=== PATIENT | male | born 1995 | race Caucasian/White ===

== ENCOUNTER 2022-01-15 21:18 | Inpatient (IN) | payer SELFPAY ==
[2022-01-15 21:19] VITALS: BP 126/79; PULSE 86; RESP 18; TEMP 37.1; O2SAT 99; BMI 25.8
--- NOTE | 2022-01-15 22:21 | CT_ITS ---
PROCEDURE INFORMATION: Exam: CT Abdomen And Pelvis With Contrast Exam date and time: 01/15/2022 10:21 PM Age: 26 years old Clinical indication: Abdominal pain; Localized; Right lower quadrant (rlq); Additional info: Rlq pain TECHNIQUE: Imaging protocol: Computed tomography of the abdomen and pelvis with contrast. Radiation optimization: All CT scans at this facility use at least one of these dose optimization techniques: automated exposure control; mA and/or kV adjustment per patient size (includes targeted exams where dose is matched to clinical indication); or iterative reconstruction. Contrast material: ISOVUE; Contrast volume: 75 ml; Contrast route: IV; COMPARISON: No relevant prior studies available. FINDINGS: Liver: Normal. No mass. Gallbladder and bile ducts: No calcified stones. No ductal dilation. Pancreas: Normal enhancement. No ductal dilation. Spleen: No splenomegaly. Adrenal glands: No mass. Kidneys and ureters: No hydronephrosis. Stomach and bowel: No obstruction. No mucosal thickening. Appendix: Dilated hyperemic appendix measuring 12 mm distally with 7 mm density near the base and adjacent stranding and fluid in several locules of gas. Intraperitoneal space: See above. Small free fluid within the pelvis which is mildly complex Vasculature: No abdominal aortic aneurysm. Lymph nodes: No enlarged lymph nodes. Urinary bladder: No acute abnormality. Reproductive: No acute abnormality. Bones/joints: No acute fracture. Soft tissues: No soft tissue swelling. IMPRESSION: Findings compatible with perforated appendicitis.
[2022-01-15 22:29] LABS: Basophils # 0.1 K/mm3 (0-0.2); Basophils % 0.5 % (0.1-2.0); Eosinophils # 0.2 K/mm3 (0.0-0.4); Eosinophils % 1.2 % (0.1-12.0); Hematocrit 44.3 % (42.0-52.0); Hemoglobin 14.5 g/dL (14.1-18.0); Lymphocytes # 0.7 K/mm3 (0.7-4.5); Lymphocytes % 5.6 % (10-50); Mean Corpuscular HGB Conc 32.8 g/dL (31.8-35.4); Mean Corpuscular Hemoglobin 31.3 pg (27.0-31.2); Mean Corpuscular Volume 95.7 fl (80-94); Mean Platelet Volume 8.8 fl (7.4-10.4); Monocytes # 0.6 K/mm3 (0.1-1.0); Monocytes % 4.3 % (1.7-9.3); Neutrophils # 11.4 K/mm3 (1.8-7.8); Neutrophils % 88.9 % (37.0-80.0); Platelet Count 254 K/mm3 (142-424); Red Blood Count 4.63 M/mm3 (4.60-6.20); Red Cell Distribution Width 13.3 % (11.5-17.5); White Blood Count 12.8 K/mm3 (4.8-10.8)
[2022-01-15 22:34] LABS: Microscopic, Urine URINE MICROSCOPIC (MICROSCOPIC)
[2022-01-15 22:36] LABS: Alanine Aminotransferase 80 U/L (12-78); Albumin Level 4.7 g/dl (3.5-5.0); Albumin/Globulin Ratio 1.3 (1.1-1.8); Alkaline Phosphatase 160 U/L (38-126); Amylase 50 U/L (30-110); Anion Gap 15.5 mEq/L (5-15); Aspartate Amino Transferase 73 U/L (17-59); Bilirubin,Total 1.4 mg/dl (0.2-1.3); Blood Urea Nitrogen 8 mg/dl (9-20); Calcium 8.9 mg/dl (8.4-10.2); Carbon Dioxide 26 mmol/L (22.0-30.0); Chloride 97 mmol/L (98-107); Creatinine Clearance Estimated 188 mL/min (50-200); Estimated Glomerular Filt Rate 160 ml/min (>60); GFR (African American) 194 ML/MIN (>60); Globulin 3.5 g/dL (1.3-3.2); Glucose 117 mg/dl (74-100); Lipase 22 U/L (23-300); Potassium 3.5 mmoL/L (3.5-5.1); Sodium 135 mmol/L (136-145); Total Protein,Serum 8.2 g/dl (6.3-8.2)
[2022-01-15 22:40] LABS: MANUAL DIFFERENTIAL MANUAL DIFFERENTIAL (MANUAL DIFF)
[2022-01-15 22:41] LABS: C-Reactive Protein 174.3 mg/L (0-4)
[2022-01-15 22:43] LABS: Appearance,Urine CLEAR (Clear); Blood, Urine Negative (Negative); Color,Urine ORANGE (Yellow); Glucose,Urine (UA) Negative (Negative); Ketones,Urine 3+ (Negative); Leukocyte Esterase,Urine Negative (Negative); Nitrate,Urine Negative (Negative); PH,Urine 5.5 (5.0-8.5); Protein,Urine 1+ (Negative); Specific Gravity, Urine >= 1.030 (1.005-1.030)
[2022-01-15 22:45] LABS: Bilirubin,Urine 2+ (Negative)
[2022-01-15 22:46] LABS: Bacteria,Urine Trace /lpf; RBC,Urine Occasional #/hpf (0-3); Squamous Epithelial Cell,Urine Occasional #/hpf (0-5)
[2022-01-15 23:02] LABS: Erythrocyte Sedimentation Rate 27 mm/hr (0-15)
[2022-01-15 23:04] LABS: Lymphocytes % 8 % (10-50); Monocytes % 4 % (2-9); Neutrophils % 81 % (42-76); Platelet Estimate Normal; RBC Morphology Normal; Total Cells Counted 100
--- NOTE | 2022-01-15 23:35 | HMH.EDNVD ---
ED Disposition Clinical Impression: Acute appendicitis Qualifiers: Acute appendicitis type: with localized peritonitis Appendicitis gangrene presence: without gangrene Appendicitis perforation presence: with perforation Appendicitis abscess presence: without abscess Qualified Code(s): K35.32 - Acute appendicitis with perforation and localized peritonitis, without abscess Disposition: Admitted As Inpatient Condition on Discharge: Good Instructions: DI for Acute Abdominal Pain Referrals: Provider,Referral, MD [Primary Care Provider] - - Critical Care Critical Care Time: No Attestation: On 01/15/22, the high probability of a clinically significant, sudden or life threatening deterioration of the following system(s) required my full and direct attention, intervention and personal management. The time I documented below is in addition to time spent performing reported procedures but includes the following listed in this critical care notation. Medical Decision Making - Medical Records Medical records reviewed: Yes: I reviewed the patient's medical records. - [place] Inquiry Pt receiving controlled substance: No Vital Signs: 01/15/22 21:19 Temperature 98.8 F Temperature Source Oral Pulse Rate [Right] 86 Respiratory Rate 18 Blood Pressure [Right Arm] 126/79 Blood Pressure Mean [Right Arm] 94 02 Sat by Pulse Oximetry 99 - Lab Data Lab results reviewed: Yes: I reviewed the patient's lab results. Lab Results 01/15/22 22:17: WBC 12.8 H, RBC 4.63, Hgb 14.5, Hct 44.3, MCV 95.7 H, MCH 31.3 H, MCHC 32.8, RDW 13.3, Plt Count 254, MPV 8.8, Neut % (Auto) 88.9 H, Lymph % (Auto) 5.6 L, [place] % (Auto) 4.3, Eos % (Auto) 1.2, Baso % (Auto) 0.5, Neut # (Auto) 11.4 H, Lymph # (Auto) 0.7, [place] # (Auto) 0.6, Eos # (Auto) 0.2, Baso # (Auto) 0.1, Total Counted 100, Neutrophils % (Manual) 81 H, Band Neutrophils % 7.0, Lymphocytes % (Manual) 8 L, Monocytes % (Manual) 4, Platelet Estimate Normal, RBC Morphology Normal, ESR 27 H 01/15/22 22:17: Sodium 135 L, Potassium 3.5, Chloride 97 L, Carbon Dioxide 26, Anion Gap 15.5 H, BUN 8 L, Creatinine 0.60 L, Estimated Creat Clear 188, Estimated GFR 160, Est GFR ( Amer) 194, Glucose 117 H, Calcium 8.9, Total Bilirubin 1.4 H, AST 73 H, ALT 80 H, Alkaline Phosphatase 160 H, C-Reactive Protein 174.3 H, Total Protein 8.2, Albumin 4.7, Globulin 3.5 H, Albumin/Globulin Ratio 1.3, Amylase 50, Lipase 22 L, Procalcitonin 0.340 01/15/22 22:30: Urine Color [place], Urine Appearance Clear, Urine pH 5.5, Ur Specific [place] >= 1.030, Urine Protein 1+, Urine Glucose (UA) Negative, Urine Ketones 3+, Urine Blood Negative, Urine Nitrate Negative, Urine Bilirubin 2+ A, Urine Urobilinogen 4.0, Ur Leukocyte Esterase Negative, Urine RBC Occasional, Urine WBC 10-20, Ur Squamous Epith Cells Occasional, Urine Bacteria Trace Result diagrams: 01/15/22 22:17 01/15/22 22:17 Orders (Tests/Meds): ED MEDICATIONS Generic Name Dose Route Start Last Admin Trade Name Freq PRN Reason Stop Dose Admin Sodium Chloride 1,000 mls @ 999 mls/hr 01/15/22 22:30 01/15/22 22:28 Sod Chlor 0.9% 1000ml Bag IV 01/15/22 23:30 999 mls/hr .Q1H1M BILL Administration Sodium Chloride 8 ml 01/15/22 22:26 Sodium Chloride 0.9% 10ml Vial IV 02/14/22 22:25 NEEDED PRN dilute pepcid Discontinued Medications Generic Name Dose Route Start Last Admin Trade Name Freq PRN Reason Stop Dose Admin Famotidine 20 mg 01/15/22 22:26 01/15/22 22:27 Famotidine 20mg/2ml Vial IV 01/15/22 22:27 20 mg ONCE ONE Administration Iopamidol 75 ml 01/15/22 22:48 01/15/22 22:49 Iopamidol-370 (76%);100ml Bottle IV 01/15/22 22:49 75 ml ONCE ONE Administration Ketorolac Tromethamine 30 mg 01/15/22 22:26 01/15/22 22:28 Ketorolac 30mg/Ml Vial IV 03/06/22 22:27 30 mg ONCE ONE Administration Metoclopramide HCl 10 mg 01/15/22 22:26 01/15/22 22:27 Metoclopramide Hcl 10mg/2ml Vial IVP 01/15/22 22:27
--- NOTE | 2022-01-15 23:37 | PC.NURSE ---
Mnoie called to verify that Dr. Gant saw report
--- NOTE | 2022-01-15 23:38 | PC.NURSE ---
Dr. Gant on phone with Dr. Mosquera
--- NOTE | 2022-01-15 23:39 | PC.NURSE ---
Surgery team notified.
[2022-01-15 23:42] LABS: Coronavirus 19, PCR Not Detected (NotDetected); Influenza A, PCR Not Detected (NotDetected); Influenza B, PCR Not Detected (NotDetected)
[2022-01-16] VITALS (24 sets, daily range): BP systolic 101–121; BP diastolic 61–78; PULSE 66–110; RESP 14–96; TEMP 36.7–43; O2SAT 92–99
[2022-01-16 00:10] LABS: Lactic Acid 0.8 mmol/L (0.7-2.1)
--- NOTE | 2022-01-16 00:11 | HMH.GSHP ---
HPI HPI: Patient is a 26-year-old male who speaks very little Albanian. He has had progressive right lower quadrant abdominal pain since 01/13/2022. Due to the persistence and severity of the pain he presented to the emergency department. He underwent evaluation. He was found to have a mild leukocytosis. He did have some mild elevation of transaminases and bilirubin. CT scan revealed findings consistent with acute perforated appendicitis. Surgical consultation was obtained. [facility] History I have reviewed the patient's past medical history: Yes *Have you ever received a pneumonia vaccine?: No *Have you received a flu vaccine this season?: No - *Social History Smoking Status: Unknown if ever smoked Alcohol Intake: current *Occupational Status:: other *Travel in the last 8 weeks: None Family Hx:: Unable to obtain Review of Systems - Review of Systems Review of systems:: unable to obtain - *Neurologic Denies localized weakness, Denies headache(s), Denies seizure-like activity Meds Home Medications Medication Instructions Recorded Confirmed Type No Known Home Medications 01/15/22 01/15/22 History Allergies Allergy/AdvReac Type Severity Reaction Status Date / Time No Known Allergies Allergy Verified 01/15/22 22:21 Exam Vital signs and Labs for Last 24 Hours: Temp Pulse Resp BP Pulse Ox 98.8 F 86 18 126/79 99 01/15/22 21:19 01/15/22 21:19 01/15/22 21:19 01/15/22 21:19 01/15/22 21:19 Laboratory Results - last 24 hr 01/15/22 22:17: WBC 12.8 H, RBC 4.63, Hgb 14.5, Hct 44.3, MCV 95.7 H, MCH 31.3 H, MCHC 32.8, RDW 13.3, Plt Count 254, MPV 8.8, Neut % (Auto) 88.9 H, Lymph % (Auto) 5.6 L, [place] % (Auto) 4.3, Eos % (Auto) 1.2, Baso % (Auto) 0.5, Neut # (Auto) 11.4 H, Lymph # (Auto) 0.7, [place] # (Auto) 0.6, Eos # (Auto) 0.2, Baso # (Auto) 0.1, Total Counted 100, Neutrophils % (Manual) 81 H, Band Neutrophils % 7.0, Lymphocytes % (Manual) 8 L, Monocytes % (Manual) 4, Platelet Estimate Normal, RBC Morphology Normal, ESR 27 H 01/15/22 22:17: Sodium 135 L, Potassium 3.5, Chloride 97 L, Carbon Dioxide 26, Anion Gap 15.5 H, BUN 8 L, Creatinine 0.60 L, Estimated Creat Clear 188, Estimated GFR 160, Est GFR ( Amer) 194, Glucose 117 H, Calcium 8.9, Total Bilirubin 1.4 H, AST 73 H, ALT 80 H, Alkaline Phosphatase 160 H, C-Reactive Protein 174.3 H, Total Protein 8.2, Albumin 4.7, Globulin 3.5 H, Albumin/Globulin Ratio 1.3, Amylase 50, Lipase 22 L, Procalcitonin 0.340 01/15/22 22:30: Urine Color [place], Urine Appearance Clear, Urine pH 5.5, Ur Specific [place] >= 1.030, Urine Protein 1+, Urine Glucose (UA) Negative, Urine Ketones 3+, Urine Blood Negative, Urine Nitrate Negative, Urine Bilirubin 2+ A, Urine Urobilinogen 4.0, Ur Leukocyte Esterase Negative, Urine RBC Occasional, Urine WBC 10-20, Ur Squamous Epith Cells Occasional, Urine Bacteria Trace 01/15/22 23:30: SARS-CoV-2 (PCR) Not detected, Influenza A Untype (PCR) Not detected, Influenza Type B (PCR) Not detected I & O for Last 24 hours: Intake & Output 01/13/22 01/14/22 01/15/22 01/16/22 11:59 11:59 11:59 11:59 Weight 160 lb - Constitutional no acute distress - *Routine HEENT Exam Head: Present: normocephalic Eye: Present: EOMI, PERRL ENT: Present: mucous membranes moist - *Routine Neck Exam Present: supple. Absent: lymphadenopathy - *Routine Respiratory Exam Present: CTA bilaterally - *Routine Cardiovascular Exam Present: RRR - *Routine Abdominal Exam Present: soft, normoactive bowel sounds, tenderness Comments: He does have tenderness with voluntary guarding in the right lower quadrant and left lower quadrant. - *Routine Rectal Exam Rectal:: deferred - *Routine Genitalia Exam Genitalia:: deferred - *Routine Extremities Exam Absent: cyanosis, clubbing, edema - *Routine Skin Exam Present: warm. Absent: rash - *Routine Neurological Exam Present: alert, oriented X3 Results - Results Lab Resul
--- NOTE | 2022-01-16 00:57 | HMH.ANESCL ---
[facility] Anesthesia Checklist - Patient Identification Patient Identification: Arm Band, Family - Structural Data Admitted From: Emergency Dept Planned Operative Procedure/s: Laparoscopic Appendectomy Consent for Planned Operative Procedure(s) Verified: Yes Verified Documents: Surgical Consent, History and Physical - NPO Status Verified Time NPO: 15:00 (01/15/22) - Additional verifications Anesthesia Reactions: No - Airway Assessment C-Spine Mobility Assessed: Yes (mp2) TMJ Mobility Assessed: Yes Dentition: Good Dentition - Neurological Assessment Level of Consciousness: Awake, Alert - Anesthesia Plan Anesthesia Risk discussed: Yes Anesthesia Plan: Verified ASA Class: I (e) Anesthesia Type: General [facility] History I have reviewed the patient's past medical history: Yes *Have you ever received a pneumonia vaccine?: No *Have you received a flu vaccine this season?: No Anesthesia experience/problems:: nac Other Surgeries: Yes: No Previous Surgery - *Social History Smoking Status: Unknown if ever smoked Alcohol Intake: current Substance Use Type: denies use *Occupational Status:: other *Travel in the last 8 weeks: None Family Hx:: Unable to obtain
--- NOTE | 2022-01-16 01:29 | HMH.OPNOTE ---
Date of procedure: 01/16/22 Pre-op Diagnosis:: Acute appendicitis Post-op Diagnosis:: Acute necrotizing perforated appendicitis Procedure performed:: Laparoscopic appendectomy Surgeon:: Benjamin Mosquera MD MANHOLE STRIPPER:: Juliano Em Anesthesia: SCOTT Estimated blood loss (mL): 10 Operative findings:: Severe acute appendicitis with necrosis and perforation with established peritonitis and purulent fluid within the abdomen. Operative note:: Consent was obtained patient taken the operating room. He was given preoperative intravenous antibiotics. In the operating room he was placed in a supine position. General anesthesia was induced via endotracheal tube. Galloway catheter was placed. Abdomen was prepped and draped in the standard surgical fashion. Infraumbilical skin incision was made and while performing abdominal wall lift Veress needle was inserted. CO2 pneumoperitoneum was achieved to 15 mmHg. 12 mm optical trocar was inserted at the umbilicus. Intraperitoneal contents were visualized. There was noted to be fibrinopurulent exudate. There were acute inflammatory adhesions with omentum adhered to the terminal ileum. Some of the small bowel was markedly inflamed and somewhat indurated and erythematous as was some of the peritoneal lining. There was purulent fluid mostly in the pelvis and right lower quadrant which was suctioned free. Ultimately the appendix was able to be identified. It was severely inflamed and necrotic. It was able to be delivered anteriorly. The mesoappendix was carefully divided with KINGS ultrasonic harmonic donny with care taken to coagulate the appendiceal artery in the process. With some minor difficulty dissection was carried down to the appendiceal base. The appendix was divided at its base with endoscopic JIAN linear cutting stapling device. The appendix was placed within an Endo Catch retrieval device and removed from the peritoneal cavity via the umbilical trocar site. This did require some minor extension of the fascial incision for delivery. The appendiceal stump was then reinforced with closure using a PDS Endoloop. Irrigation was then performed within the pelvis and right lower quadrant until clear. Irrigation was performed over the liver. Trochars were then removed as CO2 pneumoperitoneum was evacuated. Fascia at the umbilicus was closed with a couple of interrupted 0 Vicryl sutures. Local anesthetic was infiltrated. Skin incisions were closed with 4-0 Monocryl in a subcuticular fashion. Steri-Strips and dressings were applied. Condition: stable Disposition: PACU Specimens:: Appendix Complications:: None immediately apparent
--- NOTE | 2022-01-16 01:41 | P.PN_ITS ---
[facility] [place] Anesthesia Record Part I Intake, IV Amount: 600 Estimated blood loss (mL): 10 Urine output (mL): 800 Blood Pressure: 101/61 SaO2: 97 Pulse Rate: 110 Respiratory Rate: 16 Temperature: 99.2 F Patient is:: Drowsy, Stable Stable to PACU at:: 01:35
--- NOTE | 2022-01-16 02:12 | SUR.PHASEI ---
0204- detailed report called to miguel ellis in ICU. 0206- pt left in stable condition with miguel ellis in ICU at this time.
--- NOTE | 2022-01-16 02:14 | PC.NURSE ---
[facility] called to clarify dosing of zosyn, stated that she would retime since it was given prior at 0045
--- NOTE | 2022-01-16 02:42 | PC.NURSE ---
0215 pt arrived to floor via stretcher from PACU
[2022-01-16 02:56] LABS: Microscopic,Cath URINE MICROSCOPIC (MICROSCOPIC)
[2022-01-16 03:04] LABS: Appearance,Urine/Cath CLEAR (Clear); Bilirubin,Cath Negative (Negative); Blood, Urine/Cath Negative (Negative); Color,Urine/Cath YELLOW (Yellow); Glucose,Urine/Cath (UA) Negative (Negative); Ketones,Urine/Cath 1+ (Negative); Leukocyte Esterase,Cath Negative (Negative); Nitrate,Cath Negative (Negative); PH,Urine/Cath 6.5 (5.0-8.5); Protein,Urine/Cath Negative (Negative); Specific Gravity, Urine/Cath <= 1.005 (1.005-1.030)
[2022-01-16 03:12] LABS: Renal Epithelial Cells,Ur/Cath Occasional #/lpf (0); WBC,Urine/Cath Occasional #/hpf (0-3)
--- NOTE | 2022-01-16 07:43 | HMH.PHAVTE ---
[facility] Pharmacy VTE Monitoring - Patient Demographics Admission date: 01/16/22 Report Date: 01/16/22 Time: 07:43 Allergies/Adverse Reactions: Patient Allergies No Known Allergies Allergy (Verified 01/15/22 22:21) Height: 1.68 m Weight: 72.575 kg Patient Problems: Current Active Problems Acute appendicitis (Acute) - VTE Risk Labs: VTE Related Lab Results Hgb 14.5 g/dL (14.1-18.0) 01/15/22 22:17 Hct 44.3 % (42.0-52.0) 01/15/22 22:17 Plt Count 254 K/mm3 (142-424) 01/15/22 22:17 BUN 8 mg/dl (9-20) L 01/15/22 22:17 Creatinine 0.60 mg/dl (0.66-1.25) L 01/15/22 22:17 Estimated Creat Clear 188 mL/min (50-200) 01/15/22 22:17 Was VTE Risk Assessment Performed: Yes VTE Score: 3 VTE Risk Level: Low Risk Clinical Trial Participant: No - Prophylaxis VTE Prophylaxis Ordered?: Yes Types of VTE Prophylaxis: IPCS Knee High
--- NOTE | 2022-01-16 07:57 | P.PN_ITS ---
[facility] Anesthesia Record Part II Discharge Time: 02:05 Destination: Medical Surgical Department PACU nurse assessment reviewed?: Yes Patient Condition:: Good Anesthesia Complications:: None Swallowing reflex intact?: Yes Cyanosis?: No Blood Pressure: 121/76 Pulse Rate: 94 Temperature: 99 F Mental Status: Alert & Oriented Pain level:: 0 Nausea and/or vomitting:: None Intake, IV Amount: 0
--- NOTE | 2022-01-16 08:10 | P.PN_ITS ---
Subjective Narrative: Patient doing well without any issues several hours postoperatively. Progress Note: A&P Assessment and Plan for All Diagnoses:: Continue to limit to clear liquids for now due to findings of peritonitis and probable ileus intraoperatively. Continue intravenous antibiotics for esta blished purulent peritonitis. Exam Vital signs and Labs for Last 24 Hours: Temp Pulse Resp BP Pulse Ox 99 F 94 H 16 121/76 97 01/16/22 07:58 01/16/22 07:58 01/16/22 07:00 01/16/22 07:58 01/16/22 07:00 Laboratory Results - last 24 hr 01/15/22 22:17: WBC 12.8 H, RBC 4.63, Hgb 14.5, Hct 44.3, MCV 95.7 H, MCH 31.3 H , MCHC 32.8, RDW 13.3, Plt Count 254, MPV 8.8, Neut % (Auto) 88.9 H, Lymph % (Auto) 5.6 L, [place] % (Auto) 4.3, Eos % (Auto) 1.2, Baso % (Auto) 0.5, Neut # (Auto) 11.4 H, Lymph # (Auto) 0.7, [place] # (Auto) 0.6, Eos # (Auto) 0.2, Baso # (Auto) 0.1, Total Counted 100, Neutrophils % (Manual) 81 H, Band Neutrophils % 7.0, Lymphocytes % (Manual) 8 L, Monocytes % (Manual) 4, Platelet Estimate Normal, RBC Morphology Normal, ESR 27 H 01/15/22 22:17: Sodium 135 L, Potassium 3.5, Chloride 97 L, Carbon Dioxide 26, Anion Gap 15.5 H, BUN 8 L, Creatinine 0.60 L, Estimated Creat Clear 188, Estimated GFR 160, Est GFR ( Amer) 194, Glucose 117 H, Calcium 8.9, Total Bilirubin 1.4 H, AST 73 H, ALT 80 H, Alkaline Phosphatase 160 H, C-Reactive Protein 174.3 H, Total Protein 8.2, Albumin 4.7, Globulin 3.5 H, Albumin/Globulin Ratio 1.3, Amylase 50, Lipase 22 L, Procalcitonin 0.340 01/15/22 22:30: Urine Color [place], Urine Appearance Clear, Urine pH 5.5, Ur Specific [place] >= 1.030, Urine Protein 1+, Urine Glucose (UA) Negative, Urine Ketones 3+, Urine Blood Negative, Urine Nitrate Negative, Urine Bilirubin 2+ A, Urine Urobilinogen 4.0, Ur Leukocyte Esterase Negative, Urine RBC Occasional, Urine WBC 10-20, Ur Squamous Epith Cells Occasional, Urine Bacteria Trace 01/15/22 23:30: SARS-CoV-2 (PCR) Not detected, Influenza A Untype (PCR) Not detected, Influenza Type B (PCR) Not detected 01/15/22 23:49: Lactate 0.8 01/16/22 00:30: Urine Color Yellow, Urine Appearance Clear, Urine pH 6.5, Ur Specific [place] <= 1.005, Urine Protein Negative, Urine Glucose (UA) Negative, Urine Ketones 1+, Urine Blood Negative, Urine Nitrate Negative, Urine Bilirubin Negative, Urine Urobilinogen 1.0, Ur Leukocyte Esterase Negative, Urine WBC Occasional, Ur Renal Epithelial Cell Occasional I & O for Last 24 hours: Intake & Output 01/13/22 01/14/22 01/15/22 01/16/22 11:59 11:59 11:59 11:59 Intake Total 1085 / 1085 Output Total 500 / 500 Balance 585 / 585 Weight 160 lb - *Routine Abdominal Exam Present: soft
[2022-01-17] VITALS: BP 119/91; PULSE 79; RESP 19; TEMP 36.9; O2SAT 96
[2022-01-17 04:00] VITALS: BP 105/68; PULSE 70; RESP 17; TEMP 37; O2SAT 96
--- NOTE | 2022-01-17 06:03 | PC.NURSE ---
Patient alert and oriented this shift. Patient rested well t/o shift. C/o pain treated with medication per MAR with favorable results. Dressings with scant bleeding noted to abdomen. Call alcantara in reach, will continue to monitor.
[2022-01-17 06:11] LABS: Basophils % 0.4 % (0.1-2.0); Eosinophils # 0.2 K/mm3 (0.0-0.4); Eosinophils % 2.2 % (0.1-12.0); Hematocrit 41.7 % (42.0-52.0); Hemoglobin 13.1 g/dL (14.1-18.0); Lymphocytes # 1.4 K/mm3 (0.7-4.5); Lymphocytes % 15.3 % (10-50); Mean Corpuscular HGB Conc 31.4 g/dL (31.8-35.4); Mean Corpuscular Hemoglobin 31.2 pg (27.0-31.2); Mean Corpuscular Volume 99.6 fl (80-94); Monocytes # 0.7 K/mm3 (0.1-1.0); Monocytes % 7.4 % (1.7-9.3); Neutrophils # 6.7 K/mm3 (1.8-7.8); Neutrophils % 74.6 % (37.0-80.0); Platelet Count 261 K/mm3 (142-424); Red Blood Count 4.19 M/mm3 (4.60-6.20); Red Cell Distribution Width 13.6 % (11.5-17.5)
[2022-01-17 06:21] LABS: Alanine Aminotransferase 37 U/L (12-78); Albumin Level 3.5 g/dl (3.5-5.0); Albumin/Globulin Ratio 1.1 (1.1-1.8); Alkaline Phosphatase 90 U/L (38-126); Anion Gap 9.6 mEq/L (5-15); Aspartate Amino Transferase 23 U/L (17-59); Bilirubin,Total 0.8 mg/dl (0.2-1.3); Blood Urea Nitrogen 6 mg/dl (9-20); Calcium 8.4 mg/dl (8.4-10.2); Carbon Dioxide 27 mmol/L (22.0-30.0); Chloride 105 mmol/L (98-107); Creatinine Clearance Estimated 161 mL/min (50-200); Estimated Glomerular Filt Rate 134 ml/min (>60); GFR (African American) 162 ML/MIN (>60); Globulin 3.1 g/dL (1.3-3.2); Glucose 114 mg/dl (74-100); Potassium 3.6 mmoL/L (3.5-5.1); Sodium 138 mmol/L (136-145); Total Protein,Serum 6.6 g/dl (6.3-8.2)
[2022-01-17 08:00] VITALS: BP 121/84; PULSE 73; RESP 17; TEMP 36.8; O2SAT 97
[2022-01-17 12:00] VITALS: BP 125/84; PULSE 72; RESP 16; TEMP 36.9; O2SAT 98
--- NOTE | 2022-01-17 14:37 | HMH.GSPN ---
Subjective Narrative: Patient did have some pain yesterday. Improved today. Denies passing gas. Been on clear liquids. Progress Note: A&P Assessment and Plan for All Diagnoses:: Continue IV antibiotics. Likely has slowly improving ileus. Advance to full liquids at this time. Exam Vital signs and Labs for Last 24 Hours: Temp Pulse Resp BP Pulse Ox 98.4 F 72 16 125/84 98 01/17/22 12:00 01/17/22 12:00 01/17/22 12:00 01/17/22 12:00 01/17/22 12:00 Laboratory Results - last 24 hr 01/17/22 05:15: WBC 9.0 D, RBC 4.19 L, Hgb 13.1 L, Hct 41.7 L, MCV 99.6 H, MCH 31.2, MCHC 31.4 L, RDW 13.6, Plt Count 261, MPV 9.0, Neut % (Auto) 74.6, Lymph % (Auto) 15.3, [place] % (Auto) 7.4, Eos % (Auto) 2.2, Baso % (Auto) 0.4, Neut # (Auto) 6.7, Lymph # (Auto) 1.4, [place] # (Auto) 0.7, Eos # (Auto) 0.2, Baso # (Auto) 0.0 01/17/22 05:15: Sodium 138, Potassium 3.6, Chloride 105, Carbon Dioxide 27, Anion Gap 9.6, BUN 6 L, Creatinine 0.70, Estimated Creat Clear 161, Estimated GFR 134, Est GFR ( Amer) 162, Glucose 114 H, Calcium 8.4, Total Bilirubin 0.8, AST 23 D, ALT 37 D, Alkaline Phosphatase 90, Total Protein 6.6, Albumin 3.5 D, Globulin 3.1, Albumin/Globulin Ratio 1.1 I & O for Last 24 hours: Intake & Output 01/15/22 01/16/22 01/17/22 01/18/22 11:59 11:59 11:59 11:59 Intake Total 1325 / 1325 4515 / 4515 Output Total 500 / 500 2800 / 2800 Balance 825 / 825 1715 / 1715 Weight 160 lb Microbiology Reports for the Last 24 Hours: Microbiology 01/15/22 22:30 Urine,Clean Catch Urine Culture - Preliminary NO GROWTH AFTER 24 HOURS - *Routine Abdominal Exam Present: soft Comments: Abdomen is slightly distended. Trocar sites clean.
--- NOTE | 2022-01-17 15:38 | PC.NURSE ---
Pt is alert and oriented x4. Lungs are clear, bowel sounds are hypoactive. Dressings to lap sites on abd are unchanged from morning assessment. Small amount of old dried blood noted. He has tolerated his diet. Family brought in yogurt, strawberries, apples and peaches. Pt has tolerated those as well. He has ambulated to the bathroom with standby assist. He has denied pain. He is currently resting in bed watching TV.
[2022-01-17 16:00] VITALS: BP 115/76; PULSE 73; RESP 16; TEMP 37.2; O2SAT 98
--- NOTE | 2022-01-17 16:49 | PC.NURSE ---
Pt arrived to the floor from ICU at this time
--- NOTE | 2022-01-17 16:50 | PC.NURSE ---
Pt transported to room 213 at this time by A Gakyle and TYLER Anderson'jim. Report given to LEXI Thornton earlier.
--- NOTE | 2022-01-17 16:57 | PC.NURSE ---
Pt is on the floor
[2022-01-17 19:27] VITALS: BP 117/77; PULSE 76; RESP 18; TEMP 36.7; O2SAT 99
[2022-01-18 03:39] VITALS: BP 107/70; PULSE 68; RESP 16; TEMP 36.6; O2SAT 97
[2022-01-18 05:00] VITALS: BMI 21.8
--- NOTE | 2022-01-18 06:08 | PC.NURSE ---
Pt able to make basic needs known to staff. Pt c/o pain in abdomen 1x t/o shift. [place] administered per JAN, pt admits relief. Pt able to get out of bed with 1x assist, ambulating independently to . Site DSGs CDI. Pts Brother has remained in room t/o night. Call light within reach.
[2022-01-18 07:42] VITALS: BP 116/73; PULSE 74; RESP 18; TEMP 36.5; O2SAT 98
--- NOTE | 2022-01-18 08:17 | HMH.GSPN ---
Subjective Patient reports: no new complaints, bowel movement Progress Note: A&P (1) Perforated appendicitis Status: Acute Assessment and plan: Overall, doing well status post laparoscopic appendectomy. Soft diet ordered Continue IV antibiotics Increase ambulation Exam Vital signs and Labs for Last 24 Hours: Temp Pulse Resp BP Pulse Ox 97.7 F 74 18 116/73 98 01/18/22 07:42 01/18/22 07:42 01/18/22 07:42 01/18/22 07:42 01/18/22 07:42 I & O for Last 24 hours: Intake & Output 01/15/22 01/16/22 01/17/22 01/18/22 11:59 11:59 11:59 11:59 Intake Total 1325 / 1325 4635 / 4635 1042 / 1042 Output Total 500 / 500 2800 / 2800 500 / 500 Balance 825 / 825 1835 / 1835 542 / 542 Weight 160 lb 136 lb Microbiology Reports for the Last 24 Hours: Microbiology 01/15/22 23:55 Blood Blood Culture - Preliminary NO GROWTH AFTER 48 HOURS 01/15/22 23:55 Blood Blood Culture - Preliminary NO GROWTH AFTER 48 HOURS 01/15/22 22:30 Urine,Clean Catch Urine Culture - Final NO GROWTH AFTER 48 HOURS - Constitutional no acute distress - *Routine Respiratory Exam Absent: respiratory distress - *Routine Cardiovascular Exam Absent: tachycardia - *Routine Abdominal Exam Present: soft Comments: Incisions clean and dry. No erythema.
[2022-01-18 11:03] VITALS: BP 104/70; PULSE 71; RESP 16; TEMP 36.8; O2SAT 98
--- NOTE | 2022-01-18 14:56 | PC.NURSE ---
rounded on patient who was sitting up at bedside. no concerns or needs at this time
[2022-01-18 15:17] VITALS: BP 113/73; PULSE 75; RESP 16; TEMP 36.8; O2SAT 97
--- NOTE | 2022-01-18 15:18 | PC.NURSE ---
Spoke with Kenya ELLIOTT about placing PICC and now has decided that he doesn't want it placed. He wants to get stuck everytime.
[2022-01-18 20:00] VITALS: BP 117/76; PULSE 68; RESP 18; TEMP 36.4; O2SAT 98
[2022-01-19] VITALS: BP 109/76; PULSE 64; RESP 18; TEMP 36.6; O2SAT 98
[2022-01-19 04:00] VITALS: BP 112/70; PULSE 54; RESP 17; TEMP 36.4; O2SAT 99
[2022-01-19 05:00] VITALS: BMI 21.6
[2022-01-19 07:36] VITALS: BP 115/73; PULSE 83; RESP 16; TEMP 36.7; O2SAT 98
[2022-01-19 08:00] VITALS: PULSE 83; O2SAT 98
--- NOTE | 2022-01-19 10:28 | HMH.ACPN ---
Internal Medicine - PN: Subj *Date: 01/19/22 *Time: 10:28 Exam Vital signs and Labs for Last 24 Hours: Temp Pulse Resp BP Pulse Ox 98.1 F 83 16 115/73 98 01/19/22 07:36 01/19/22 08:00 01/19/22 07:36 01/19/22 07:36 01/19/22 08:00 I & O for Last 24 hours: Intake & Output 01/16/22 01/17/22 01/18/22 01/19/22 23:59 23:59 23:59 23:59 Intake Total 3229 / 3229 3413 / 3413 840 / 840 240 / 240 Output Total 3300 / 3300 500 / 500 Balance -71 / -71 2913 / 2913 840 / 840 240 / 240 Weight 61.689 kg 61.054 kg Assessment and Plan (1) Perforated appendicitis Status: Acute Category: Medical Code(s): K35.32 - Acute appendicitis with perforation and localized peritonitis, without abscess The patient's infection will respond to the chosen ABx?: Yes (POST OP ABX APPENDECTOMY) Is the patient receiving the right drug, dose, and route?: Yes Could a more targeted ABx be ordered?: No
--- NOTE | 2022-01-19 10:39 | HMH.GSPN ---
Subjective Narrative: Doing well. Tolerating bland diet. He does feel somewhat bloated but no nausea. He has been passing gas and had a bowel movement. Progress Note: A&P (1) Perforated appendicitis Status: Acute Assessment and Plan for All Diagnoses:: Discharge home Exam Vital signs and Labs for Last 24 Hours: Temp Pulse Resp BP Pulse Ox 98.1 F 83 16 115/73 98 01/19/22 07:36 01/19/22 08:00 01/19/22 07:36 01/19/22 07:36 01/19/22 08:00 I & O for Last 24 hours: Intake & Output 01/16/22 01/17/22 01/18/22 01/19/22 11:59 11:59 11:59 11:59 Intake Total 1325 / 1325 4635 / 4635 1042 / 1042 720 / 720 Output Total 500 / 500 2800 / 2800 500 / 500 Balance 825 / 825 1835 / 1835 542 / 542 720 / 720 Weight 160 lb 136 lb 134 lb 9.6 oz - *Routine Abdominal Exam Present: soft
--- NOTE | 2022-01-19 10:41 | HMH.DCSUM ---
General - General Admission date:: 01/16/22 Discharge date: 01/19/22 HPI HPI: Patient is a 26-year-old male who speaks very little [place]. He has had progressive right lower quadrant abdominal pain since 01/13/2022. Due to the persistence and severity of the pain he presented to the emergency department on evening of 01/15/2022. He underwent evaluation. He was found to have a mild leukocytosis. He did have some mild elevation of transaminases and bilirubin. CT scan revealed findings consistent with acute perforated appendicitis. Surgical consultation was obtained. Hospital Course Hospital Course: Patient was seen and examined in the emergency department. He did have some diffuse abdominal tenderness with voluntary guarding. He was taken to the operating room at which time he underwent laparoscopic appendectomy. He was found to have evidence of established peritonitis and perforated appendicitis. Appendix was necrotic. There was purulent fluid with some exudate as well as some peritoneal and small bowel serosal irritation and inflammation. Please see operative dictation for complete details. He was admitted for postoperative care. He is continued on intravenous antibiotics as he was given Zosyn preoperatively and this was continued postoperatively. He was limited to a clear liquid diet on postoperative day #1 due to findings of probable ileus. He did well. His white blood cell count and liver function tests had normalized. He continued to feel somewhat bloated consistent with ileus on postop day #2. He was advanced to a full liquid diet on postoperative day #3. He was advanced to a bland diet. He tolerated this. He denied nausea. He had been moving his bowels. Arrangements were made for discharge home. Objective Vital signs: Temp Pulse Resp BP Pulse Ox 98.1 F 83 16 115/73 98 01/19/22 07:36 01/19/22 08:00 01/19/22 07:36 01/19/22 07:36 01/19/22 08:00 Results Labs on day of discharge: Preliminary micro results at discharge 01/15/22 23:55 Blood Culture - Preliminary Blood NO GROWTH AFTER 48 HOURS 01/15/22 23:55 Blood Culture - Preliminary Blood NO GROWTH AFTER 48 HOURS DS: Diagnosis - Discharge Diagnosis (1) Perforated appendicitis Status: Acute Discharge Plan - Patient Discharge Instructions ACTIVITY: No heavy lifting DIET: advance to your usual diet Patient Instructions: DI for Appendicitis -- Adult, DI for Peritonitis, DI for Surgical Site Infection, Appendectomy -- Laparoscopic Surgery - Follow up Plan Follow up with: Provider,MD Sierra [Primary Care Provider] - Benjamin Mosquera MD [Staff Physician] - 2 weeks Disposition: Home, Self-Care Condition at discharge:: Improved Home Medications: Home Medications Medication Instructions Recorded Confirmed Type Amoxicillin/Potassium Clav 2 tab PO Q12H 5 Days #20 tab 01/19/22 Rx [Augmentin Xr 1,000-62.5 Tab] Hydrocod/Acet 5/325 mg [[place] 1 - 2 tab PO Q6HP PRN #11 tab 01/19/22 Rx 5/325mg tablet] Prescriptions/Medication Reconciliation: New Hydrocod/Acet 5/325 mg [[place] 5/325mg tablet] 1 - 2 tab PO Q6HP PRN #11 tab PRN Reason: Moderate Pain Amoxicillin/Potassium Clav [Augmentin Xr 1,000-62.5 Tab] 2 tab PO Q12H 5 Days #20 tab - Problem Reconciliation Problems Reviewed?: Yes
--- NOTE | 2022-01-19 12:02 | HMH.PHAINT ---
Discharge counseling complete. Informed pt of new medications, purpose, how to take, and potential side effects. Pt didnt speak much. Not sure how well he spoke [place]. Mostly discussed with family member in the room. At the end of the discussion, both the patient and family member seemed to understand the instructions and had no questions or concerns other than the time he would be discharged from the hospital
== END 2022-01-19 13:00 | disposition home or self-care (01) | DRG 339 ==
LOC: ER 23:47 → SDC 01-16 00:53 → ICU 01-16 02:42 → 2ND 01-17 15:17
PROVIDERS: Admitting Provider Surgery; Emergency Provider Emergency Medicine; Referring Provider Emergency Medicine; Visit Provider Surgery
PROC: 0DTJ4ZZ Resection of Appendix, Percutaneous Endoscopic Approach (ICD-10-PCS; CPT 44970; principal; 2022-01-16)
DX: K35.32 Acute appendicitis with perforation, localized peritonitis, and gangrene, without abscess (principal); K56.7 Ileus, unspecified
CPT/HCPCS: 44970; 36415; 74177; 80053; 81001; 82150; 83605; 83690; 84145; 85007; 85025; 85651; 86140; 87040; 87086; 96365; 96375; 99285; C9803; J2405; J2543; J2710; Q9967; U0003; U0005